=== PATIENT | female | born 1970 | race Caucasian/White ===

== ENCOUNTER → 2017-05-14 | Outpatient (CLI) | payer BC ==
[2017-05-14 17:07] VITALS: BP 122/71; PULSE 71; RESP 16; TEMP 98.1
--- NOTE | 2017-05-28 16:30 | P.PN ---
Progress Note - Text DATE OF SERVICE: 05/14/2017 REASON FOR CONSULTATION: Initial bariatric evaluation. HISTORY OF PRESENT ILLNESS: The patient is a 46-year-old female who presents with long-standing history of morbid obesity. She has history of a sleeve gastrectomy performed over 3+ years ago. She reports after her initial sleeve, she has lost follow-up. She now presents several years later with iron deficiency anemia including chronic fatigue. She reports losing her hair. She is not been taking her multivitamins. She's not been following her bariatric diet of protein intake over 75 g. She completed an upper endoscopy with features of a diaphragmatic hiatal hernia symptomatic. Now she presents for further evaluation and management. At her height of 5 foot 3.25, her ideal body weight is 140 pounds. Today she comes in at her heaviest of 207 pounds. She is 67 pounds overweight. PAST MEDICAL HISTORY: 1. Gastroesophageal reflux disease. 2. Depression. 3. Morbid obesity. 4. Iron deficiency anemia. PAST SURGICAL HISTORY: 1. Sleeve gastrectomy. 2. Upper endoscopy. HOME MEDICATIONS: 1. Iron. 2. Celexa. ALLERGIES: None. SOCIAL HISTORY: No active tobacco use. FAMILY HISTORY: Denies any DVTs, pulmonary embolisms in her family. Denies any ulcerative colitis disease or Crohn's. She does have a family history of morbid obesity. REVIEW OF ORGAN SYSTEMS: CONSTITUTIONAL: At her height of 5 foot 3.25, her ideal body weight is 140 pounds. Today she comes in at her heaviest of 207 pounds. She is 67 pounds overweight. HEENT: Denies any active troubles with vision or hearing. ENDOCRINE: No reports of diabetes or hypothyroidism. CARDIOVASCULAR: No reports of palpitations or heart attacks or chest pain. RESPIRATORY: No pneumonia. No recent asthma. GI: Denies any bright red blood per rectum, diarrhea or constipation. Reports severe gastroesophageal reflux disease. MUSCULOSKELETAL: Describes generalized muscle aches, including lower back pain or joint pain. NEURO: No reports of headaches or seizure disorders. PSYCH: Has depression without suicidal ideation. Has anxiety. HEMATOLOGIC: Denies any abnormal bleeding or bruising. PHYSICAL EXAM: VITAL SIGNS: height 5 foot 3.25 inches, weight 207 pounds. BMI 36.5. Vital Signs Temp 98.1 F 05/14/17 17:04 Pulse 71 05/14/17 17:04 Resp 16 05/14/17 17:04 BP 122/71 05/14/17 17:04 Pulse Ox GENERAL: Well-developed female in no acute distress. HEENT: No scleral icterus. Extraocular was grossly intact. No nasal drainage. NECK: Supple without lymphadenopathy. CHEST: Nonlabored respirations with equal bilateral excursions. CARDIOVASCULAR: Regular rate. Distal 2+ pulses. ABDOMEN: Obese, soft, nontender, nondistended. MUSCULOSKELETAL: No clubbing, cyanosis, or edema. Gross strength 5/5 distal lower extremities. NEURO: No focal or lateralizing signs. Cranial nerves 2 through 12 grossly within normal limits. PSYCH: Appropriate affect. Alert and oriented to person, place and time. LABS: Outside lab review was confirmed iron deficiency anemia including vitamin B12 deficiency. STUDIES: Upper endoscopy consistent with symptomatic diaphragmatic hiatal hernia over 2-3 cm with erosive esophagitis, LA grade C. ASSESSMENT: 1. Morbid obesity due to excess calories. 2. Body mass index of 36.5 3. History of sleeve gastrectomy. 4. Iron deficiency anemia. 5. Gastroesophageal reflux disease. 6. Diaphragmatic hiatal hernia. 7. Medical noncompliance to bariatric diet. 8. Vitamin B12 deficiency. PLAN: 1. She has obtained the bariatric metabolic panel at an outside facility with features consistent with iron deficiency anemia including vitamin B12 deficiency. 2. Recommend vitamin B12 intramuscular shot including oral supplementation. 3. Despite oral supplement with iron, she still is iron deficient. May benefit from iron infusion. 4. Recommend referral to bariatric dietitian regarding gastrectomy diet. 5. Recommend protein intake of at least 70 g daily. 6. Recommend intensive nutritional follow-up within the next 2-3 months for complete correction. 7. Recommend multivitamin, daily. Thank you for this consultation.
== END | disposition home or self-care (01) ==
LOC: BARWHC3 16:31
PROVIDERS: ATTEND Surgery Plastic and Reconstructive Surgery
DX: Z48.815 Encounter for surgical aftercare following surgery on the digestive system (principal); E66.01 Morbid (severe) obesity due to excess calories; Z68.36 Body mass index [BMI] 36.0-36.9, adult; D50.9 Iron deficiency anemia, unspecified; K21.9 Gastro-esophageal reflux disease without esophagitis; K44.9 Diaphragmatic hernia without obstruction or gangrene; E53.8 Deficiency of other specified B group vitamins; F32.9 Major depressive disorder, single episode, unspecified; Z79.899 Other long term (current) drug therapy; Z98.84 Bariatric surgery status
CPT/HCPCS: 99201

== ENCOUNTER → 2017-07-10 | Outpatient (CLI) | payer BC | END | disposition home or self-care (01) | LOC: RADECHMAIN 12:28 | PROVIDERS: ATTEND Family Medicine | DX: R00.0 Tachycardia, unspecified (principal) | CPT/HCPCS: 93225; 93226 ==

== ENCOUNTER → 2020-03-31 | Outpatient (CLI) | payer BC | END | disposition home or self-care (01) | LOC: LABWHC1 07:56 | PROVIDERS: ATTEND Obstetrics & Gynecology | DX: U07.1 COVID-19 (principal) | CPT/HCPCS: 87635 ==

== ENCOUNTER 2020-04-03 07:58 | Day surgery (SDC) | payer BC ==
--- NOTE | 2020-03-30 12:57 | HP ---
HISTORY AND PHYSICAL The patient is a 49-year-old 3, para 3-0-0-3, who presented to the office for her routine examination with complaints of significant menorrhagia with cycles lasting at least 6 days and are very heavy with clots and have led actually to anemia for which she is being treated through hematology. Her cycles remain fairly regular and roughly every 28-30 days. We discussed multiple different options for treatment and ultimately, after thorough discussion, she has opted to proceed with diagnostic hysteroscopy with NovaSure endometrial ablation. PAST MEDICAL HISTORY: Significant for anemia as noted above, and some depression. PAST SURGICAL HISTORY: Significant for gastric sleeve procedure in 2013 and secondarily wisdom teeth extraction. She has had no anesthetic concerns by her report. OBSTETRICAL HISTORY: 3, para 3-0-0-3 term vaginal deliveries without complications. Current method of contraception is vasectomy. GYNECOLOGIC HISTORY: Unremarkable aside from the menorrhagia as noted in the history of present illness, leading to anemia. There is no history of any infections to include STDs. FAMILY HISTORY: Noncontributory. SOCIAL HISTORY: The patient is and works as a teacher. She is a nonsmoker and reports occasional alcohol, but no other social concerns. CURRENT MEDICATIONS: Include Celexa 20 mg daily. Folic acid daily, Prilosec daily, vitamin B12 daily, and vitamin D daily. ALLERGIES: No known drug allergies. REVIEW OF SYSTEMS: Confined to history of present illness. PHYSICAL EXAMINATION: Vital signs are stable. The patient is afebrile. In general, this is a well- developed, well-nourished white female in no acute distress. Her heart has regular rhythm and rate without murmur. Her lungs are clear to auscultation bilaterally in all garner. Her abdomen is nondistended, has normoactive bowel sounds, soft, nontender, and without any palpable masses, hepatosplenomegaly, or hernias. Her extremities without any cyanosis, clubbing, or edema and are nontender to palpation. Pelvic examination demonstrates normal external genitalia and BUS with normal vaginal mucosa and cervix to inspection and palpation. There is no cervical motion tenderness. The uterus is approximately 5-6 weeks' in size, retroverted, mobile, nontender, normal in shape. The adnexa are normal and nontender without mass bilaterally. Endometrial biopsy was performed and ultimately demonstrated to be benign. ASSESSMENT AND PLAN: Menorrhagia with anemia: The options for treatment were discussed at length and the patient has opted to proceed with diagnostic hysteroscopy with NovaSure endometrial ablation. The risks and complications of the procedure have been thoroughly discussed including the risks for bleeding, bleeding requiring transfusion, infection, and injury to local structures to specifically include uterine perforation as well as subsequent Asherman syndrome and possible hematometra. She has understood all these concerns and has agreed to proceed. We are scheduled for the procedure as outlined above on the morning of April 03, 2020. MMODL / IJN: [id number] /
[2020-03-30 14:47] VITALS: BMI 34.3
[~2020-04-03 07:58] MED LIST: DEXAMETHASONE SOD PHOSPHATE 10 MG/ML 1 ML VIAL IV ONE; HYDROmorphone 0.5 MG/0.5 ML SYRINGE IVP PRN; LACTATED RINGERS 1,000 ML IV SCH; LIDOCAINE 1% (10MG/ML) FOR IV START INTRADERMA PRN; ONDANSETRON 4 MG/2 ML VIAL IVP ONE; Pre Op ABX Message 1 EACH MISC MISCELLANE ONE
[2020-04-03] MEDS ORDERED: ONDANSETRON 4 MG/2 ML VIAL IVP ONE (08:22)
[2020-04-03] MEDS ORDERED: DEXAMETHASONE SOD PHOSPHATE 10 MG/ML 1 ML VIAL IV ONE (08:23)
[2020-04-03] MEDS ORDERED: SCOPOLAMINE 1.5MG/72HR PATCH TRANSDERM ONE (08:23)
[2020-04-03] MEDS ORDERED: fentaNYL (PF) 50 MCG/ML 2 ML AMP ONE (09:14)
[2020-04-03] MEDS ORDERED: KETOROLAC 30 MG/ML 1 ML VIAL ONE (09:14)
[2020-04-03] MEDS ORDERED: SUCCINYLCHOLINE CHLORIDE 100 MG/5 ML SYR IV ONE (09:14)
[2020-04-03] MEDS ORDERED: PROPOFOL 10 MG/ML 20 ML VIAL IV ONE (09:14)
[2020-04-03] MEDS ORDERED: LIDOCAINE 1% INJ 10MG/ML (20 ML MDV) ONE (09:14)
[2020-04-03] MEDS ORDERED: MIDAZOLAM 2 MG/2 ML VIAL ONE (09:14)
[2020-04-03] MEDS ORDERED: SIMETHICONE 80 MG CHEWABLE PO PRN (09:47)
[2020-04-03] MEDS ORDERED: KETOROLAC 30 MG/ML 1 ML VIAL IVP PRN (09:47)
[2020-04-03] MEDS ORDERED: Acetaminophen-Codeine 300-30mg TAB PO PRN ×2 (09:47)
[2020-04-03] MEDS ORDERED: diphenhydrAMINE 50 MG/ML 1 ML VIAL IVP PRN (09:47)
[2020-04-03] MEDS ORDERED: ONDANSETRON 4 MG/2 ML VIAL IVP PRN (09:47)
[2020-04-03] MEDS ORDERED: IBUPROFEN 600 MG TAB PO PRN (09:47)
[2020-04-03] MEDS ORDERED: METOCLOPRAMIDE 5 MG/ML 2 ML VIAL IVP PRN (09:47)
--- NOTE | 2020-04-03 09:57 | P.OP ---
Date of Procedure: 04/03/20 Preoperative Diagnosis: #1. Menorrhagia #2. Anemia Postoperative Diagnosis: Same Procedure(s) Performed: #1. Diagnostic hysteroscopy #2. NovaSure endometrial ablation Anesthesia: JOSIAH Surgeon: Alejo Haas Estimated Blood Loss (ml): 5 IV fluids (ml): 400 Urine output (ml): 50 Pathology: none sent Condition: stable Disposition: PACU Operative Findings: Preoperative pelvic examination demonstrated a 5-6 week retroverted mobile normal shaped uterus with normal adnexa bilaterally. Intraoperatively, the cervix sounded to approximate 4 cm while uterus sounded to 10 cm in total. Using hysteroscope, the bilateral tubal ostia were seen. There was no obvious pathology present though visualization was somewhat difficult secondary to blood floating in the saline. The settings for the NovaSure tool where a length of 6.0, a width of 4.7, for a total of 155 W. The total run time was 117 seconds after which time the base unit read "procedure complete." The postprocedural result appeared to be excellent through the hysteroscope. Description of Procedure: The patient was prepped and draped in usual fashion after general endotracheal anesthesia was administered by the anesthesiologist. A weighted speculum was placed and the anterior lip of the cervix grasped with single-tooth tenaculum. The bladder was drained of approximately 50 mL of clear rodolfo urine. The cervix and uterus were sounded to 4 and 10 cm respectively. Serial dilation was carried out to admit the diagnostic hysteroscope which was placed to the fundus with the findings as noted above. There was no apparent pathology and the bilateral tubal ostia were seen. The scope was set aside in favor of the NovaSure tool which was placed into the uterus, opened, and seated well. The settings for the tool were as noted above with a length of 6.0 cm, a width of 4.7 cm for a total power 155 W. The cavity test was passed without difficulty. The tool was enabled and the run was started. After total run time of 117 seconds, the tool disengaged and the base unit read "procedure complete." The instrument was closed, removed, and discarded. The diagnostic scope was placed and the uterine cavity and the findings appeared to be excellent as noted above. All instrumentation was then removed. There was no ongoing bleeding either from the cervix or from the tenaculum site. Estimated blood loss for the entire case was 5 mL or less. There were no complications. All sponge, instrument, and needle counts were correct. The patient tolerated the procedure well and proceeded to the recovery room in stable condition.
[2020-04-03] MEDS ORDERED: LACTATED RINGERS 1,000 ML IV SCH (10:00)
[2020-04-03 10:07] VITALS: TEMP 96
[2020-04-03 10:18] VITALS: RESP 18
[2020-04-03] MEDS ORDERED: LACTATED RINGERS 1,000 ML IV ONE (10:26)
[2020-04-03 11:04] VITALS: BP 116/78; PULSE 68
== END 2020-04-03 11:25 | disposition home or self-care (01) ==
LOC: OR 07:58
PROVIDERS: ATTEND Obstetrics & Gynecology
DX: N92.0 Excessive and frequent menstruation with regular cycle (principal); D64.9 Anemia, unspecified; K21.9 Gastro-esophageal reflux disease without esophagitis; F32.9 Major depressive disorder, single episode, unspecified; Z98.84 Bariatric surgery status; Z79.899 Other long term (current) drug therapy
CPT/HCPCS: 81025; 58563; J2250; J1100; J2405; J2001; J3010; J1885; J0330; J2704

== ENCOUNTER → 2021-02-28 | Outpatient (CLI) | payer BC ==
--- NOTE | 2021-02-28 20:59 | CONS ---
CONSULTATION DATE OF SERVICE: 02/28/2021 This 50-year-old lady has been evaluated in the sleep center for possible obstructive sleep apnea-hypopnea syndrome. HISTORY OF PRESENT ILLNESS/SLEEP-WAKE EVALUATION: Patient's usual sleep schedule is from 9 p.m. to 5:30 a.m. on working days and to 6:30 a.m. on weekends. No problems with falling asleep, although she reads in the bedroom. During sleep she is in different positions on the back and side. She snores and wakes up from sleep 2 times with one episode of nocturia. Recently she developed an episode of chest pain during sleep and was evaluated in the emergency room with a negative cardiac workup. She wakes up with panic attacks, episodes of palpitation and grinding teeth. During the day she has problems with memory, episodes of anxiety. [place] Sleepiness Scale is 6. Patient's weight increased over the last 5 years by about 15 pounds. PAST MEDICAL HISTORY: Positive for depression, headaches, acid reflux, iron deficiency anemia. PAST SURGICAL HISTORY: Gastric sleeve, uterus ablation. MEDICATIONS: Prilosec, Celexa, Flonase, loratadine. SOCIAL HISTORY: Negative for smoking. Alcohol consumption: Occasional. FAMILY HISTORY: Stroke, heart problems, sleep apnea. REVIEW OF SYSTEMS: Awakenings from sleep, episodes of sleepiness during the day, snoring, episodes of chest pain. PHYSICAL EXAMINATION: GENERAL: A pleasant lady without distress. VITAL SIGNS: BP 129/90, HR 93, RR 14, height 5 feet 5 inches, weight 203.8, BMI 33.9, temperature 98.8, oxygen saturation at room air 95%. HEENT: PERRLA, EOMI. Evaluation of oropharynx showed tongue protrudes midline. Low position of soft palate. Mallampati III. NECK: Supple. No JVD. Thyroid is not palpable. Neck measures 14-1/2 inches in circumference. LUNGS: Clear to percussion and to auscultation. Good air exchange. No wheezing or rhonchi. HEART: S1, S2 regular. No murmurs, gallops or rubs. ABDOMEN: Obese. EXTREMITIES: No clubbing or cyanosis. LOOM TUNER: Awake, alert, and oriented X3. Cranial nerves 2 to 7 intact. There is no fasciculation or atrophy. noted. No focal deficits observed. IMPRESSION: 1. Snoring, awakenings from sleep with nocturia, low position of soft palate, episode of chest pain developed during sleep; possible obstructive sleep apnea-hypopnea syndrome. 2. Obesity. BMI 33.9. 3. History of depression. 4. Acid reflux. 5. History of sinus problems. 6. Headaches. 7. History of iron deficiency anemia. 8. Status post uterine ablation. 9. Status post gastric sleeve. PLAN: 1. Home sleep apnea test to check patient's breathing during sleep. 2. CPAP/BiPAP titration if sleep study confirms obstructive sleep apnea-hypopnea syndrome. 3. Preferable position during sleep on the side. 4. No driving if patient feels any sleepiness. 5. I will see patient for follow up visit to explain results of testing and following plan. Thank you very much for referring this patient for consultation. Sincerely, Reagan Lobo MD, PhD, FAASM Diplomat of [employer] Mainframe Developer of [facility] [place] MMODL / REGGIEN: [id number] /
== END | disposition home or self-care (01) ==
CPT/HCPCS: 99211

== ENCOUNTER → 2021-07-05 | Outpatient (CLI) | payer BC ==
--- NOTE | 2021-07-06 11:47 | SFUN ---
SLEEP CENTER FOLLOW UP NOTE DATE OF SERVICE: 07/05/2021 This 50-year-old lady has been followed in Sleep Center for treatment of obstructive sleep apnea-hypopnea syndrome. Recently the patient had a home sleep apnea test which showed that the patient has sleep apnea, and after that she was started on treatment with CPAP. Today is her first visit on CPAP therapy. The patient feels better while using her CPAP. She sleeps better and feels better during the day. I discussed with her results of the sleep study in detail. Her [place] Sleepiness Scale today is 4, which is totally normal. I checked her CPAP unit. Range of the pressure is 5-15, average pressure 9.4 cm of water. Usage is 30/30 nights and 29/30 nights for more than 4 hours, average 6.9 hours per night. Leak is 10 L/minute, which is in normal range. Apnea-hypopnea index is only 0.4, which is totally normal. MEDICATIONS: 1. Prilosec. 2. Celexa. 3. Loratadine. PHYSICAL EXAMINATION: GENERAL: A pleasant patient without any distress. VITAL SIGNS: BP 119/82, HR 74, RR 15, weight 207, temperature 98.2, oxygen saturation at room air 95%. HEENT: PERRLA, EOMI, evaluation of oropharynx showed tongue protrudes midline. Low position of soft palate. Mallampati 3. NECK: Supple, no JVD. Thyroid is not palpable. LUNGS: Clear to percussion and to auscultation. Good air exchange. No wheezing or rhonchi. HEART: S1, S2 regular. No murmurs, gallops, or rubs. ABDOMEN: Slightly obese. EXTREMITIES: No clubbing or cyanosis. SIDE HEMMER: Awake, alert, and oriented X3. Cranial nerves 2 to 7 intact. There is no fasciculation or atrophy. noted. No focal deficits observed. IMPRESSION: 1. Obstructive sleep apnea-hypopnea syndrome. Patient demonstrated 100% compliance with treatment, benefitting from treatment. 2. Mild obesity. 3. History of depression. 4. Acid reflux. 5. History of sinus problems. 6. Headaches. 7. History of iron deficiency anemia. 8. Status post uterine ablation. 9. Status post gastric sleeve. PLAN: 1. Patient will continue to use PAP equipment every night for the whole night. 2. Sleep hygiene with regular time in bed for at least 7-1/2 to 8 hours. 3. Precautions related to driving. No driving if feeling sleepiness. 4. I will maintain all necessary prescription for PAP supplies including mask, tube, filters. 5. Watching weight. 6. Follow-up visit in one year or earlier if patient has any problems. Thank you very much for allowing me to participate in the management of your patient. Sincerely, Reagan Lobo MD, PhD, FAASM Diplomat of [employer] [employer] Sleep Medicine Board of [employer] [employer] Director Of Supply Chain of [facility] [place] MMODL / IJN: [id number] /
== END | disposition home or self-care (01) ==
LOC: SLEEP 15:52
PROVIDERS: ATTEND Internal Medicine
DX: Z53.9 Procedure and treatment not carried out, unspecified reason (principal)

== ENCOUNTER → 2023-06-11 | Outpatient (CLI) | payer BC ==
--- NOTE | 2023-06-12 08:25 | MM ---
Reason for Exam: Screening (asymptomatic). Last mammogram was performed 2 year(s) and 6 month(s) ago. Patient History: Menarche at age 12. First Full-Term at age 26. Risk Values: Patt 5 year model risk: 1.2%. NCI Lifetime model risk: 10.6%. Prior Study Comparison: 12/31/2012 Bilateral Screening Mammogram, [facility]. 04/15/2018 Bilateral MG screening mammo w CAD - 2, Unknown. 12/11/2020 Bilateral MG screening mammo w CAD - 2, Unknown. Tissue Density: There are scattered fibroglandular densities. Findings: Analyzed By CAD. No suspicious group of microcalcifications within either breast. No suspicious mass within the left breast. There is an ovoid circumscribed 5 mm mass within the lower outer right breast at anterior depth. Overall Assessment: Incomplete: need additional imaging evaluation, BI-RAD 0 Management: Diagnostic Breast Ultrasound of the right breast. A clinical breast exam by your physician is recommended on an annual basis and results should be correlated with mammographic findings. [facility] will attempt to contact patient to return for supplemental views and ultrasound if indicated. Note on Patt scores and lifetime risk: 1. A Patt score greater than 3% is considered moderate risk. If this is the case, consider specialist referral to assess eligibility for a risk reducing agent. If overall lifetime risk for the development of breast cancer is 20% or higher, the patient may qualify for future screening with alternating mammogram and breast MRI. Electronically signed and approved by: Stone Snyder D.O.
== END | disposition home or self-care (01) ==
LOC: RADMAMWWP 16:25
PROVIDERS: ATTEND Obstetrics & Gynecology
DX: Z12.31 Encounter for screening mammogram for malignant neoplasm of breast (principal)
CPT/HCPCS: 77063; 77067

== ENCOUNTER → 2023-11-12 | Outpatient (CLI) | payer BC ==
--- NOTE | 2023-11-13 16:42 | MR ---
EXAMINATION TYPE: MR angio head wo con DATE OF EXAM: 11/12/2023 8:03 PM CLINICAL INDICATION:Female, 53 years old with history of R51.9 Headache; PHH, Headaches. COMPARISON: MR brain same day. Technical: 3-D [id number] Axial with MIP reconstruction created on a separate workstation.. IV Contrast: None cc Findings: Vertebral arteries: The vertebral arteries are patent. Vertebral arteries are: Codominant. Basilar artery: The basilar artery is intact. The basilar artery bifurcation is normal. Internal Carotid arteries: The cervical, petrous, cavernous and supraclinoid segments are normal. ROSALIO: Patent with no evidence of aneurysm. ACOM: Present without evidence of aneurysm. MCA: Patent with no evidence of aneurysm. DROP WIRE ALINER: Patent with no evidence of aneurysm. PCOM: Hypoplastic bilaterally. IMPRESSION: No evidence of aneurysm or significant stenosis.
--- NOTE | 2023-11-13 16:43 | MR ---
EXAMINATION TYPE: MR brain wo/w con DATE OF EXAM: 11/12/2023 8:26 PM CLINICAL INDICATION:Female, 53 years old with history of R51.9 Headache, Headaches. COMPARISON: Same day MRI TECHNIQUE: Multi planar, multi sequence imaging was performed through the brain including: T1, T2, In version recovery, susceptibility weighted imaging and gradient echo imaging and Diffusion weighted im aging. The patient was then given intravenous contrast and multi planar, T1 fat-saturation images wer e obtained. IV Contrast: 9.5 cc Gadavist FINDINGS: The vance-white junctions, ventricular system, basal cisterns appear unremarkable. Diffusion-weighted imaging shows no evidence of restricted diffusion to suggest acute/subacute infarct. Intracranial ar terial flow voids are maintained. Midline structures show no abnormality. Scattered foci of high T2 s ignal intensity are seen within the periventricular white matter. The susceptibility weighted images do not reveal any evidence for micro-hemorrhage. After administration of gadolinium, no abnormal enha ncement is seen. The bone marrow signal is within normal limits. Paranasal sinuses and mastoid air cells: Moderate mucosal thickening of the maxillary sinuses. Visual ized orbits: Orbital contents are intact. IMPRESSION: 1. No evidence of intracranial mass, acute/subacute infarct, or abnormal enhancement. 2. Nonspecific white matter changes, likely related to small vessel ischemic disease versus sequela o f headaches. 3. Moderate paranasal sinus disease of the neck/sinuses.
== END | disposition home or self-care (01) ==
LOC: RADMRIMAIN 19:22
PROVIDERS: ATTEND Family Medicine
DX: R51.9 Headache, unspecified (principal); R90.82 White matter disease, unspecified; J34.89 Other specified disorders of nose and nasal sinuses
CPT/HCPCS: 70544; 70553; A9585

== ENCOUNTER → 2024-02-16 | Outpatient (CLI) | payer BC ==
--- NOTE | 2024-02-16 09:37 | USB ---
Reason for Exam: Follow-up at short interval from prior study. Patient History: Menarche at age 12. First Full-Term at age 26. Risk Values: Patt 5 year model risk: 1.3%. NCI Lifetime model risk: 10.5%. Technique: Method: Targeted. Prior Study Comparison: 04/15/2018 Bilateral MG screening mammo w CAD - 2, Unknown. 12/11/2020 Bilateral MG screening mammo w CAD - 2, Unknown. 06/11/2023 Bilateral MG 3D screening mammo w/cad, [facility]. Findings: The lower section of the breast of the right breast, the axilla of the right breast and the retroareolar of the right breast were scanned. No solid or cystic masses are identified. No discrete abnormality at 6:00 position is identified to correlate with the prior findings. Overall Assessment: Negative, BI-RAD 1 Management: Screening Mammogram of both breasts in 6 months. A clinical breast exam by your physician is recommended on an annual basis and results should be correlated with mammographic findings. This exam should not preclude additional follow-up of suspicious palpable abnormalities. Results were given to the patient verbally at the time of exam. Electronically signed and approved by: Gerard Teixeira D.O. Radiologis
== END | disposition home or self-care (01) ==
LOC: RADUSWWP 08:23
PROVIDERS: ATTEND Family Medicine
DX: R92.8 Other abnormal and inconclusive findings on diagnostic imaging of breast (principal)

== ENCOUNTER 2024-03-14 23:42 | Observation (INO) | payer BC ==
[2024-03-15 00:11] LABS: INR 0.9 (<1.2); Partial Thromboplastin Time 23.9 sec (22.0-30.0)
[2024-03-15 00:14] LABS: Basophils # (A) 0.1 k/uL (0-0.2); Basophils % (A) 1 %; Eosinophils % (A) 0 %; HCT 41.5 % (34.0-46.0); HGB 13.7 gm/dL (11.4-16.0); Lymphocytes # (A) 2.6 k/uL (1.0-4.8); Lymphocytes % (A) 34 %; MCH 28.7 pg (25.0-35.0); MCHC 32.9 g/dL (31.0-37.0); MCV 87.1 fL (80.0-100.0); Mean Platelet Volume 7.1; Monocytes # (A) 0.4 k/uL (0-1.0); Monocytes % (A) 5 %; Neutrophils # (A) 4.3 k/uL (1.3-7.7); Neutrophils % (A) 58 %; Platelet Count 253 k/uL (150-450); RBC 4.77 m/uL (3.80-5.40); RDW 12.4 % (11.5-15.5); WBC 7.5 k/uL (3.8-10.6)
[2024-03-15 00:20] LABS: ALT 45 U/L (4-34); AST 25 U/L (14-36); African American GFR (CKD) >90 (>60 ml/min/1.73 sqM); Alkaline Phosphatase 105 U/L (38-126); Anion Gap 4 mmol/L; Blood Urea Nitrogen 17 mg/dL (7-17); Calcium 9.3 mg/dL (8.4-10.2); Carbon Dioxide 30 mmol/L (22-30); Chloride 106 mmol/L (98-107); Glucose 110 mg/dL (74-99); Magnesium 2.2 mg/dL (1.6-2.3); Non-African American GFR(CKD) >90 (>60 ml/min/1.73 sqM); Potassium 4.5 mmol/L (3.5-5.1); Sodium 140 mmol/L (137-145); Total Bilirubin 0.3 mg/dL (0.2-1.3); Total Protein 6.9 g/dL (6.3-8.2)
[2024-03-15] MEDS: NITROGLYCERIN SL TABS 0.4 MG TAB SUBLINGUAL STA ×2 (00:22→00:42)
[2024-03-15] MEDS: ASPIRIN 81 MG PO STA (00:23)
--- NOTE | 2024-03-15 00:24 | ED ---
General Adult HPI - General Chief complaint: Chest Pain Stated complaint: Chest Pressure, Back pain, Dizziness Time Seen by Provider: 03/15/24 00:03 Source: patient, RN notes reviewed, old records reviewed Mode of arrival: ambulatory Limitations: no limitations - History of Present Illness Initial comments: Is a 53-year-old female who presents emergency department complaining of chest pain. States she has substernal chest pain that has occurred twice today. No known palliative or provocative factors. Denies any cardiac history. Has a history of GERD. Describes the pain as a pressure-like sensation over her sternum. States she also has noticed some back soreness in her lower mid back however is uncertain if it is related to her current complaints or not. Denies any shortness of breath. Denies any radiation of the pain to her arms or shoulders. Denies any nausea or diaphoresis with the pain. Presents for further evaluation at this time. States she does feel lightheaded when the pain is severe. States it is currently 1 or 2 out of 10. Was worse earlier at approximately an 8 out of 10. Started again at approximately 10:30 PM last night. - Related Data Home Medications Medication Instructions Recorded Confirmed Citalopram Hydrobromide [CeleXA] 30 mg PO DAILY 05/14/17 04/03/20 Omeprazole [PriLOSEC] 20 mg PO AC-BRKFST 05/14/17 04/03/20 Isibloom 1 tab PO DAILY 03/30/20 04/03/20 Allergies Allergy/AdvReac Type Severity Reaction Status Date / Time No Known Allergies Allergy Verified 03/14/24 23:46 Review of Systems ROS Statement: Those systems with pertinent positive or pertinent negative responses have been documented in the HPI. Review of Systems: CONST: Denies fever EYES: Denies blurry vision ENT: Denies nasal congestion C/V: Endorses chest discomfort RESP: Denies shortness of breath GI: Denies abdominal pain : Denies dysuria SKIN: Denies rash. MSK: Denies joint pain. NEURO: Denies headache ROS Other: All systems not noted in ROS Statement are negative. Past Medical History Past Medical History: GERD/Reflux Additional Past Medical History / Comment(s): Low iron, anemia History of Any Multi-Drug Resistant Organisms: None Reported Past Surgical History: Bariatric Surgery Past Anesthesia/Blood Transfusion Reactions: No Reported Reaction Past Psychological History: Depression Smoking Status: Never smoker Past Alcohol Use History: Rare Past Drug Use History: None Reported General Exam - General Exam Comments Initial Comments: General: Appears in no acute distress. HEAD: Normal with no signs of head trauma. EYES: PERRLA, EOMI, conjunctiva normal, no discharge. ENT: Hearing grossly intact, normal oropharynx. RESPIRATORY: Clear breath sounds bilaterally. No wheezes, rales, or rhonchi. C/V: Regular rate and rhythm. S1 and S2 auscultated, no edema, peripheral pulses 2+ and intact throughout. Chest pain not reproducible on palpation. ABD: Abd is soft, nontender, nondistended EXT: Normal range of motion, no obvious deformity SKIN: No rashes or lesions observed on exposed skin. NEURO: Alert and oriented x 4. Limitations: no limitations Course Vital Signs 03/14/24 23:44 Temperature 97.7 F Pulse Rate 67 Respiratory 18 Rate Blood Pressure 128/73 O2 Sat by Pulse 97 Oximetry Medical Decision Making - Medical Decision Making Was pt. sent in by a medical professional or institution (, PA, SAFETY ADMIN ASSISTANT, urgent care, hospital, or halfway...) When possible be specific @ -No Did you speak to anyone other than the patient for history (EMS, parent, family, police, friend...)? What history was obtained from this source @ -No Did you review nursing and triage notes (agree or disagree)? Why? @ -I reviewed and agree with nursing and triage notes Were old charts reviewed (outside hosp., previous admission, EMS record, old E KG, old radiological studies, urgent care reports/EKG's, halfway records)? Report findings @ -Old charts reviewed Differential Diagnosis (chest pain, altered mental status, abdominal pain women, abdominal pain men, vaginal bleeding, weakness, fever, dyspnea, syncope, headache, dizziness, GI bleed, back pain, seizure, CVA, palpatations, mental health, musculoskeletal)? @ -Differential Chest Pain: Stable Angina, Unstable Angina, STEMI, NSTEMI Aortic Dissection, Pneumothorax, Musculoskeletal, Esophageal Spasm GERD, Cholecystitis, Pancreatitis, Zoster, this is not meant to be an all-inclusive list. EKG interpreted by me (3pts min.). @ -As above X-rays interpreted by me (1pt min.). @ -Chest x-ray reveals no obvious acute cardiopulmonary process. CT interpreted by me (1pt min.). @ -None done U/S interpreted by me (1pt. min.). @ -None done What testing was considered but not performed or refused? (CT, X-rays, U/S, labs)? Why? @ -None What meds were considered but not given or refused? Why? @ -None Did you discuss the management of the patient with other professionals (mahad sahni i.e. , PA, SAFETY ADMIN ASSISTANT, lab, RT, psych nurse, oncology social work, underwear hemmer, teacher, police officer booking, gearcase assembler)? Give summary @ -No Was smoking cessation discussed for >3mins.? @ -No Was critical care preformed (if so, how long)? @ -No Were there social determinants of health that impacted care today? How? (Homelessness, low income, unemployed, alcoholism, drug addiction, transportation, low edu. Level, literacy, decrease access to med. care, long term, rehab)? @ -No Was there de-escalation of care discussed even if they declined (Discuss DNR or withdrawal of care, Hospice)? DNR status @ -No What co-morbidities impacted this encounter? (DM, HTN, Smoking, COPD, CAD, Cancer, CVA, ARF, Chemo, Hep., AIDS, mental health diagnosis, sleep apnea, morbid obesity)? @ -None Was patient admitted / discharged? Hospital course, mention meds given and route, prescriptions, significant lab abnormalities, going to OR and other pertinent info. @ -Based on the patient's presentation and physical exam, we will obtain cardiopulmonary workup. Concern for cardiac etiology for current symptoms. Vital signs are currently within acceptable limits. She will be given 324 mg of aspirin as well as nitro tablets. She was in agreement this plan. EKG shows no signs of acute ischemia. Chest x-ray unremarkable.Laboratory studies unremarkable including undetectable troponin, normal D-dimer. Remainder the labs unremarkable. Following multiple nitroglycerin tablets, chest pain unchanged. Patient's heart score is moderate at 4. I did recommend admission at this time for repeat troponins and cardiology evaluation. Patient was in agreement this plan. At this time, patient was dosed a small dose of Ativan, as well as Toradol and GI cocktail. Patient's symptoms resolved and she is asymptomatic. At this time though we will continue with plan for admission for chest pain. We will trend the troponin. Cardiology consulted. Echo ordered. I spoke with the admitting team, RENA Foote who is covering for Dr. Pond. Patient was accepted. Undiagnosed new problem with uncertain prognosis? @ -No Drug Therapy requiring intensive monitoring for toxicity (Heparin, Nitro, Insulin, Cardizem)? @ -No Were any procedures done? @ -No Diagnosis/symptom? @ -Chest pain Acute, or Chronic, or Acute on Chronic? @ -Acute Uncomplicated (without systemic symptoms) or Complicated (systemic symptoms)? @ -Complicated Side effects of treatment? @ -None Exacerbation, Progression, or Severe Exacerbation] @ -No Poses a threat to life or bodily function? @ -Possibly, yes - Lab Data Result diagrams: 03/14/24 23:48 03/14/24 23:48 Lab Results 03/14/24 03/14/24 03/14/24 Range/Units 23:48 23:48 23:48 WBC 7.5 (3.8-10.6) k/uL RBC 4.77 (3.80-5.40) m/uL Hgb 13.7 (11.4-16.0) gm/dL Hct 41.5 (34.0-46.0) % MCV 87.1 (80.0-100.0) fL MCH 28.7 (25.0-35.0) pg MCHC 32.9 (31.0-37.0) g/dL RDW 12.4 (11.5-15.5) % Plt Count 253 (150-450) k/uL MPV 7.1 Neutrophils % 58 % Lymphocytes % 34 % Monocytes % 5 % Eosinophils % 0 % Basophils % 1 % Neutrophils # 4.3 (1.3-7.7) k/uL Lymphocytes # 2.6 (1.0-4.8) k/uL Monocytes # 0.4 (0-1.0) k/uL Eosinophils # 0.0 (0-0.7) k/uL Basophils # 0.1 (0-0.2) k/uL PT 10.0 (10.0-12.5) sec INR 0.9 (<1.2) APTT 23.9 (22.0-30.0) sec D-Dimer (<0.60) mg/L FEU Sodium 140 (137-145) mmol/L Potassium 4.5 (3.5-5.1) mmol/L Chloride 106 (98-107) mmol/L Carbon Dioxide 30 (22-30) mmol/L Anion Gap 4 mmol/L BUN 17 (7-17) mg/dL Creatinine 0.75 (0.52-1.04) mg/dL Est GFR (CKD-EPI)AfAm >90 (>60 ml/min/1.73 sqM) Est GFR (CKD-EPI)NonAf >90 (>60 ml/min/1.73 sqM) Glucose 110 H (74-99) mg/dL Calcium 9.3 (8.4-10.2) mg/dL Magnesium 2.2 (1.6-2.3) mg/dL Total Bilirubin 0.3 (0.2-1.3) mg/dL AST 25 (14-36) U/L ALT 45 H (4-34) U/L Alkaline Phosphatase 105 (38-126) U/L Troponin I (0.000-0.034) ng/mL Total Protein 6.9 (6.3-8.2) g/dL Albumin 4.0 (3.5-5.0) g/dL 03/14/24 03/15/24 Range/Units 23:48 00:00 WBC (3.8-10.6) k/uL RBC (3.80-5.40) m/uL Hgb (11.4-16.0) gm/dL Hct (34.0-46.0) % MCV (80.0-100.0) fL MCH (25.0-35.0) pg MCHC (31.0-37.0) g/dL RDW (11.5-15.5) % Plt Count (150-450) k/uL MPV Neutrophils % % Lymphocytes % % Monocytes % % Eosinophils % % Basophils % % Neutrophils # (1.3-7.7) k/uL Lymphocytes # (1.0-4.8) k/uL Monocytes # (0-1.0) k/uL Eosinophils # (0-0.7) k/uL Basophils # (0-0.2) k/uL PT (10.0-12.5) sec INR (<1.2) APTT (22.0-30.0) sec D-Dimer 0.25 (<0.60) mg/L FEU Sodium (137-145) mmol/L Potassium (3.5-5.1) mmol/L Chloride (98-107) mmol/L Carbon Dioxide (22-30) mmol/L Anion Gap mmol/L BUN (7-17) mg/dL Creatinine (0.52-1.04) mg/dL Est GFR (CKD-EPI)AfAm (>60 ml/min/1.73 sqM) Est GFR (CKD-EPI)NonAf (>60 ml/min/1.73 sqM) Glucose (74-99) mg/dL Calcium (8.4-10.2) mg/dL Magnesium (1.6-2.3) mg/dL Total Bilirubin (0.2-1.3) mg/dL AST (14-36) U/L ALT (4-34) U/L Alkaline Phosphatase (38-126) U/L Troponin I <0.012 (0.000-0.034) ng/mL Total Protein (6.3-8.2) g/dL Albumin (3.5-5.0) g/dL - EKG Data -: EKG Interpreted by Me EKG Comments: 12-lead Electrocardiogram Interpretation Note EKG was reviewed and interpreted by myself. 12-lead ECG performed at 2351 is interpreted by me as revealing normal sinus rhythm at a rate of 64 beats per minute. [place] is normal. LA interval is 146 ms, QRS duration is 86 ms, QTc is 391 ms.. There were no ST or T wave abnormalities to suggest myocardial ischemia or injury. R wave progression across the precordium was satisfactory. By my interpretation this EKG is non-diagnostic for acute ischemia. Disposition Clinical Impression: Chest pain Disposition: ADMITTED IP TO THIS HOSP Condition: Stable Time of Disposition: 01:44
--- NOTE | 2024-03-15 00:59 | XR ---
EXAM: XR Chest, 2 Views CLINICAL HISTORY: ITS.REASON XR Reason: Chest Pain TECHNIQUE: Frontal and lateral views of the chest. COMPARISON: No relevant prior studies available. FINDINGS: Lungs: Unremarkable. No consolidation. Pleural space: Unremarkable. No pneumothorax. Heart: Unremarkable. No cardiomegaly. Mediastinum: Unremarkable. Normal mediastinal contour. Bones/joints: Unremarkable. No acute fracture. IMPRESSION: Normal chest x-rays.
[2024-03-15] MEDS: LORazepam 1 MG TAB PO STA (01:12)
[2024-03-15] MEDS: MAG HYDROX/AL HYDROX/SIMETH 30 ML, HYOSCYAMINE ELIXIR 10 ML PO STA (01:12)
[2024-03-15] MEDS: PANTOPRAZOLE 40 MG/10 ML VIAL IVP STA (01:13)
[2024-03-15] MEDS: KETOROLAC 15 MG/ML 1 ML VIAL IVP STA (01:13)
[2024-03-15] MEDS ORDERED: NALOXONE 0.4 MG/ML 1 ML VIAL IV PRN (01:44)
[2024-03-15] MEDS: HEPARIN SODIUM,PORCINE 5,000 UNIT/ML 1 ML VIAL SQ SCH (09:00)
[2024-03-15 09:07] VITALS: RESP 16
[2024-03-15] MEDS: ENOXAPARIN 40 MG/0.4 ML SYRINGE SQ SCH (10:21)
--- NOTE | 2024-03-15 10:23 | CA ---
Transthoracic Echo Report Name: Kortney Barahona Age: 53 Gender: F : 1970 Exam Date: 03/15/2024 08:41 Exam Location: [facility] Ht (in): 63 Wt (lb): 210 Ordering Physician: Fady Medina MD Attending/Referring Phys: Inventory Taker Callie Gracia RDCS Procedure CPT: Indications: Chest Pain Cardiac Hx: Technical Quality: Contrast 1: Total Dose (mL): Contrast 2: Total Dose (mL): MEASUREMENTS (Male / Female) Normal Values 2D ECHO LV Diastolic Diameter PLAX 4.6 cm 4.2 - 5.9 / 3.9 - 5.3 cm LV Systolic Diameter PLAX 3.1 cm IVS Diastolic Thickness 1.0 cm 0.6 - 1.0 / 0.6 - 0.9 cm LVPW Diastolic Thickness 1.1 cm 0.6 - 1.0 / 0.6 - 0.9 cm LV Relative Wall Thickness 0.5 RV Internal Dim ED PLAX 1.9 cm LA Systolic Diameter LX 4.1 cm 3.0 - 4.0 / 2.7 - 3.8 cm LV Diastolic Volume MOD BP 56.0 cm??? 67 - 155 / 56 - 104 cm??? LV Systolic Volume MOD BP 23.9 cm??? 22 - 58 / 19 - 49 cm??? LV Ejection Fraction MOD BP 57.4 % >= 55 % LV Cardiac Index MOD BP 1024.8 cm???/min???m??? LV Diastolic Volume MOD 4C 63.2 cm??? LV Systolic Volume MOD 4C 17.5 cm??? LV Ejection Fraction MOD 4C 72.4 % LV Cardiac Index MOD 4C 1457.2 cm???/min???m??? LV Diastolic Length 4C 7.4 cm LV Systolic Length 4C 5.5 cm LV Diastolic Volume MOD 2C 43.4 cm??? LV Systolic Volume MOD 2C 29.8 cm??? LV Ejection Fraction MOD 2C 31.3 % LV Cardiac Index MOD 2C 432.1 cm???/min???m??? LV Diastolic Length 2C 6.4 cm LV Systolic Length 2C 6.2 cm LA Volume 65.2 cm??? 18 - 58 / 22 - 52 cm??? LA Volume Index 31.0 cm???/m??? 16 - 28 cm???/m??? M-MODE Aortic Root Diameter MM 2.7 cm LA Systolic Diameter MM 3.8 cm LA Ao Ratio MM 1.4 AV Cusp Separation MM 1.9 cm DOPPLER AV Peak Velocity 123.1 cm/s AV Peak Gradient 6.1 mmHg MV Area PHT 2.8 cm??? Mitral E Point Velocity 75.6 cm/s Mitral A Point Velocity 61.7 cm/s Mitral E to A Ratio 1.2 MV Deceleration Time 271.3 ms TR Peak Velocity 203.4 cm/s TR Peak Gradient 16.5 mmHg Right Ventricular Systolic Press 21.3 mmHg PV Peak Velocity 106.0 cm/s PV Peak Gradient 4.5 mmHg FINDINGS Left Ventricle Left ventricular ejection fraction is estimated at 60-65 %. Mildly increased septal wall thickness. Mildly increased posterior wall thickness. No obvious regional wall motion abnormalities. Normal left ventricular diastolic filling pattern. Left ventricular cavity size normal. Right Ventricle Normal right ventricular size and function. Right ventricular systolic pressure within normal limits. Right Atrium Normal right atrial size. Left Atrium Mildly increased left atrial diameter. Mildly increased left atrial volume. Mildly increased left atrial area. Mitral Valve Structurally normal mitral valve. Trace mitral regurgitation. Aortic Valve Trileaflet aortic valve. No aortic valve stenosis or regurgitation. Tricuspid Valve Structurally normal tricuspid valve. Mild tricuspid regurgitation. Pulmonic Valve Structurally normal pulmonic valve. No pulmonic stenosis. Trace pulmonic regurgitation. Pericardium Normal pericardium. Aorta Normal size aortic root and proximal ascending aorta. CONCLUSIONS LV size and systolic function Normal RV size and systolic function Mild left atrial enlargement Mildly thickened posterior basal pericardial without any effusion Previewed by: Dr. Niko Morocho MD (Electronically Signed) Final Date: 15 March 2024 10:22
--- NOTE | 2024-03-15 10:33 | P.CRDCN ---
History of Present Illness History of present illness: HISTORY OF PRESENT ILLNESS: This is a 53-year-old female with a past medical history significant for hyperlipidemia, GERD, and depression. Patient does not follow with a records administrator. We have been asked to see the patient in consultation for chest pain. Patient examined at the bedside in the emergency room. Patient states she was at [employer] yesterday morning when she began to have pain in the middle of her chest. She states it felt like a pressure type sensation in the upper aspect of her chest. She states that the pain also went into her lower back. She reports feeling nauseated. She states the pain lasted for approximately 30 minutes and then went away on its own. She states the discomfort recurred yesterday evening around 10 PM. She states she was not nauseous at that time. She reports feeling somewhat disoriented. She states she continued to have the pain when sh e came to the emergency room but then the pain went away on its own. The pain is not worse with chest wall palpation. She states the pain is worse when she lays down and is improved when she is sitting up. She is a non-smoker. She denies a family history of CAD. DIAGNOSTICS: - EKG reveals sinus mechanism with no signs of acute ischemia - Chest xray negative for acute process - Laboratory data: WBC 7.5. Hemoglobin 13.7. Platelet count 253. D-dimer 0.25. Sodium 140. Potassium 4.5. BUN 17. Creatinine 0.75. Troponin negative x 3. - Current home cardiac medications include Lipitor 10 mg at night. REVIEW OF SYSTEMS: At the time of my exam: CONSTITUTIONAL: Denies fever or chills. HEENT: Denies blurred vision, vision changes, or eye pain. Denies hemoptysis CARDIOVASCULAR: Denies chest pain. Denies orthopnea. Denies PND. Denies palpitations RESPIRATORY: Denies shortness of breath. GASTROINTESTINAL: Denies abdominal pain. Denies nausea or vomiting. HEMATOLOGIC: Denies bleeding disorders. GENITOURINARY: Denies any blood in urine. SKIN: Denies pruitis. Denies rash. PHYSICAL EXAM: VITAL SIGNS: Reviewed. GENERAL: Well-developed in no acute distress. HEENT: Head is normocephalic. Pupils are equal, round. Sclerae anicteric. Mucous membranes of the mouth are moist. Neck supple. No JVD or thyromegaly LUNGS: Respirations even and unlabored. Lungs essentially clear to auscultation bilaterally. HEART: Regular rate and rhythm. S1 and S2 heard. ABDOMEN: Soft. Nondistended. Nontender. EXTREMITIES: Normal range of motion. No clubbing or cyanosis. Peripheral pulses intact. No lower extremity edema NEUROLOGIC: Awake and alert. Oriented x 3. ASSESSMENT: Chest pain, rule out pericarditis Hyperlipidemia GERD Depression Morbid obesity: BMI 37.2 PLAN: An acute coronary but has been ruled out Obtain 2D echo to assess cardiac structure and function Resume home cardiac medications Repeat EKG Obtain lipid panel and hemoglobin A1c Further recommendations pending patient course Nurse practitioner note has been reviewed by physician. Signing provider agrees with the documented findings, assessment, and plan of care documented by RN BSN as a scribe. Past Medical History Past Medical History: GERD/Reflux Additional Past Medical History / Comment(s): Low iron, anemia History of Any Multi-Drug Resistant Organisms: None Reported Past Surgical History: Bariatric Surgery Past Anesthesia/Blood Transfusion Reactions: No Reported Reaction Past Psychological History: Depression Smoking Status: Never smoker Past Alcohol Use History: Rare Past Drug Use History: None Reported Medications and Allergies Home Medications Medication Instructions Recorded Confirmed Type Citalopram Hydrobromide [CeleXA] 20 mg PO HS 05/14/17 03/15/24 History Omeprazole [PriLOSEC] 20 mg PO HS 05/14/17 03/15/24 History Atorvastatin [Lipitor] 10 mg PO HS 03/15/24 03/15/24 History Loratadine [Claritin] 10 mg PO DAILY 03/15/24 03/15/24 History Allergies Allergy/AdvReac Type Severity Reaction Status Date / Time No Known Allergies Allergy Verified 03/15/24 08:12 Physical Exam Vitals: Vital Signs Temp Pulse Resp BP Pulse Ox 03/15/24 04:00 95 18 119/88 95 03/15/24 03:30 98 F 60 18 100/65 96 03/15/24 02:00 63 18 124/80 95 03/15/24 01:00 62 18 132/78 94 L 03/14/24 23:44 97.7 F 67 18 128/73 97 Intake and Output 03/14/24 03/15/24 03/15/24 22:59 06:59 14:59 Other: Weight 95.254 kg Results 03/14/24 23:48 03/14/24 23:48 Cardiac Enzymes 03/14/24 03/14/24 03/15/24 Range/Units 23:48 23:48 03:26 AST 25 (14-36) U/L Troponin I <0.012 <0.012 (0.000-0.034) ng/mL 03/15/24 Range/Units 06:10 AST (14-36) U/L Troponin I <0.012 (0.000-0.034) ng/mL Coagulation 03/14/24 Range/Units 23:48 PT 10.0 (10.0-12.5) sec APTT 23.9 (22.0-30.0) sec CBC 03/14/24 Range/Units 23:48 WBC 7.5 (3.8-10.6) k/uL RBC 4.77 (3.80-5.40) m/uL Hgb 13.7 (11.4-16.0) gm/dL Hct 41.5 (34.0-46.0) % Plt Count 253 (150-450) k/uL Comprehensive Metabolic Panel 03/14/24 Range/Units 23:48 Sodium 140 (137-145) mmol/L Potassium 4.5 (3.5-5.1) mmol/L Chloride 106 (98-107) mmol/L Carbon Dioxide 30 (22-30) mmol/L BUN 17 (7-17) mg/dL Creatinine 0.75 (0.52-1.04) mg/dL Glucose 110 H (74-99) mg/dL Calcium 9.3 (8.4-10.2) mg/dL AST 25 (14-36) U/L ALT 45 H (4-34) U/L Alkaline Phosphatase 105 (38-126) U/L Total Protein 6.9 (6.3-8.2) g/dL Albumin 4.0 (3.5-5.0) g/dL Current Medications Generic Name Dose Route Start Last Admin Trade Name Freq PRN Reason Stop Dose Admin Heparin Sodium (Porcine) 5,000 unit 03/15/24 08:00 Heparin Sodium,Porcine 5,000 Unit/Ml 1 Ml Vial SQ Q8HR JENSEN Naloxone HCl 0.2 mg 03/15/24 01:44 Naloxone 0.4 Mg/Ml 1 Ml Vial IV Q2M PRN Opioid Reversal Intake and Output 03/14/24 03/15/24 03/15/24 22:59 06:59 14:59 Other: Weight 95.254 kg 03/14/24 23:48 03/14/24 23:48
[2024-03-15 15:11] VITALS: BP 128/74; PULSE 88; TEMP 98
--- NOTE | 2024-03-15 15:58 | P.HPIM ---
History of Present Illness H&P Date: 03/15/24 Chief Complaint: Chest pain This is a pleasant 53-year-old patient, follows with Dr. Bragg. Chronic stable medical conditions include GERD, hyperlipidemia, depression. Yesterday morning patient was in the [place] when she developed pressure also into her back. Lasted for about half an hour. Settled down gradually on its own. Patient was slightly dizzy. May be a bit short of breath. Patient had a similar episode later in the day. Patient has no prior cardiac history. Patient has put on some weight in the last few years. Denies any excessive muscular work. No leg swelling. Review of systems: GEN.: Tired EYES: None HEENT: None NECK: None RESPIRATORY: None CARDIOVASCULAR: As above e GASTROINTESTINAL: None GENITOURINARY: None MUSCULOSKELETAL: None LYMPHATICS: None HEMATOLOGICAL: None PSYCHIATRY: Bit of depression e NEUROLOGICAL: None Social history: Lives with her . Alcohol rarely. No smoking. 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 Physical examination: VITAL SIGNS: 98.4, 62, 16, 103/69, 96% room air GENERAL: BMI 37.2, reclining bed awake comfortable. EYES: Pupils equal. Conjunctiva brittany l. HEENT: External appearance of nose and ears normal, oral cavity grossly normal. NECK: JVD not raised; masses not palpable. HEART: First and second heart sounds are normal; no edema. LUNGS: Respiratory rate normal; clear to auscultation. ABDOMEN: Soft, nontender, liver spleen not palpable, no masses palpable. PSYCH: Alert and oriented x3; mood and affect brittany l. MUSCULOSKELETAL:No Clubbing/cyanosis;muscles-grossly intact NEUROLOGICAL: Cranial nerves grossly intact; no facial asymmetry, power and sensation grossly intact. LYMPHATICS: No lymph nodes palpable in the axilla and neck INVESTIGATIONS, reviewed in the clinical context: March 14, 2024: White count 7.5 hemoglobin 13.7 platelets 253 D-dimer 0.25 potassium 4.5 BUN 17 creatinine 0.75 Troponin I less than 0.012 x 3 EKG tracing personally reviewed by me-normal sinus rhythm. Rate 64 Chest x-ray film personally reviewed by me-unremarkable Assessment plan: -Anterior chest wall pain. Could be musculoskeletal. Serial cardiac exam negative. Telemetry. Cardiology consulted. -Obesity BMI 37.2 Weight loss measures discussed with the patient. Follow-up with PCP. -GERD Prilosec 20 mg nightly -Chronic allergies Claritin -Hyperlipidemia Lipitor 10 mg nightly -Depression not otherwise specified Celexa 20 mg nightly Care was discussed with the patient. 2D echocardiogram has been ordered. Home medications to continue. - Past Medical History Past Medical History: GERD/Reflux Additional Past Medical History / Comment(s): Low iron, anemia History of Any Multi-Drug Resistant Organisms: None Reported Past Surgical History: Bariatric Surgery Past Anesthesia/Blood Transfusion Reactions: No Reported Reaction Past Psychological History: Depression Smoking Status: Never smoker Past Alcohol Use History: Rare Past Drug Use History: None Reported Medications and Allergies Home Medications Medication Instructions Recorded Confirmed Type Citalopram Hydrobromide [CeleXA] 20 mg PO HS 05/14/17 03/15/24 History Omeprazole [PriLOSEC] 20 mg PO HS 05/14/17 03/15/24 History Aspirin 81 mg PO DAILY #30 tab 03/15/24 Rx Atorvastatin [Lipitor] 10 mg PO HS 03/15/24 03/15/24 History Loratadine [Claritin] 10 mg PO DAILY 03/15/24 03/15/24 History Allergies Allergy/AdvReac Type Severity Reaction Status Date / Time No Known Allergies Allergy Verified 03/15/24 08:12 Physical Exam Vitals: Vital Signs Temp Pulse Pulse Resp BP BP Pulse Ox 03/15/24 14:54 98 F 88 16 128/74 97 03/15/24 09:05 98.4 F 62 16 103/69 96 03/15/24 04:00 95 18 119/88 95 03/15/24 03:30 98 F 60 18 100/65 96 03/15/24 02:00 63 18 124/80 95 03/15/24 01:00 62 18 132/78 94 L 03/14/24 23:44 97.7 F 67 18 128/73 97 Intake and Output 03/15/24 03/15/24 03/15/24 06:59 14:59 22:59 Other: # Voids 2 Weight 95.254 kg 95.254 kg Results CBC & Chem 7: 03/14/24 23:48 03/14/24 23:48 Labs: Abnormal Lab Results - Last 24 Hours (Table) 03/14/24 Range/Units 23:48 Glucose 110 H (74-99) mg/dL ALT 45 H (4-34) U/L
[2024-03-15 16:26] LABS: Chol/HDL Ratio 2.64 Ratio; LDL Cholesterol,Calculated 80.3 mg/dL (0.0-131.0); VLDL Calculation 16.64 mg/dL (5.00-40.00)
[2024-03-15] MEDS ORDERED: PANTOPRAZOLE 40 MG TABLET PO SCH (21:00)
[2024-03-15] MEDS ORDERED: CITALOPRAM HYDROBROMIDE 20 MG TAB PO SCH (21:00)
[2024-03-15] MEDS ORDERED: ATORVASTATIN 10 MG TAB PO SCH (21:00)
--- NOTE | 2024-03-16 20:19 | P.DS ---
Providers Date of admission: 03/15/24 01:44 Expected date of discharge: 03/15/24 Attending physician: Nolan Pond Consults: 03/15/24 01:44 Consult Physician Routine Consulting Provider: [facility] Consult Reason/Comments: chest pain Do you want consulting provider notified?: Yes Primary care physician: Gerard [facility] Course: Chief Complaint: Chest pain This is a pleasant 53-year-old patient, follows with Dr. Bragg. Chronic stable medical conditions include GERD, hyperlipidemia, depression. Yesterday morning patient was in [place] when she developed pressure also into her back. Lasted for about half an hour. Settled down gradually on its own. Patient was slightly dizzy. May be a bit short of breath. Patient had a similar episode later in the day. Patient has no prior cardiac history. Patient has put on some weight in the last few years. Denies any excessive muscular work. No leg swelling. 2D echocardiogram came back to be unremarkable. Patient to follow-up with cardiology outpatient. Social history: Lives with her . Alcohol rarely. No smoking. 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 Physical examination: VITAL SIGNS: 98.4, 62, 16, 103/69, 96% room air GENERAL: BMI 37.2, reclining bed awake comfortable. EYES: Pupils equal. Conjunctiva brittany l. HEENT: External appearance of nose and ears normal, oral cavity grossly normal. NECK: JVD not raised; masses not palpable. HEART: First and second heart sounds are normal; no edema. LUNGS: Respiratory rate normal; clear to auscultation. ABDOMEN: Soft, nontender, liver spleen not palpable, no masses palpable. PSYCH: Alert and oriented x3; mood and affect brittany l. MUSCULOSKELETAL:No Clubbing/cyanosis;muscles-grossly intact NEUROLOGICAL: Cranial nerves grossly intact; no facial asymmetry, power and sensation grossly intact. LYMPHATICS: No lymph nodes palpable in the axilla and neck INVESTIGATIONS, reviewed in the clinical context: March 14, 2024: White count 7.5 hemoglobin 13.7 platelets 253 D-dimer 0.25 potassium 4.5 BUN 17 creatinine 0.75 Troponin I less than 0.012 x 3 EKG tracing personally reviewed by me-normal sinus rhythm. Rate 64 Chest x-ray film personally reviewed by me-unremarkable 2D echocardiogram: Preserved LV function Assessment plan: -Anterior chest wall pain. Could be musculoskeletal. Serial cardiac exam negative. Telemetry. By cardiology Dr. Niko Maloney. Follow-up outpatient. 2D echo-normal. -Obesity BMI 37.2 Weight loss measures discussed with the patient. Follow-up with PCP. -GERD Prilosec 20 mg nightly -Chronic allergies Claritin -Hyperlipidemia Lipitor 10 mg nightly -Depression not otherwise specified Celexa 20 mg nightly Disposition: Home - Past Medical History Past Medical History: GERD/Reflux Additional Past Medical History / Comment(s): Low iron, anemia History of Any Multi-Drug Resistant Organisms: None Reported Past Surgical History: Bariatric Surgery Past Anesthesia/Blood Transfusion Reactions: No Reported Reaction Past Psychological History: Depression Smoking Status: Never smoker Past Alcohol Use History: Rare Past Drug Use History: None Reported Plan - Discharge Summary Discharge Rx Participant: Yes New Discharge Prescriptions: New Aspirin 81 mg PO DAILY #30 tab Continue Citalopram Hydrobromide [CeleXA] 20 mg PO HS Omeprazole [PriLOSEC] 20 mg PO HS Atorvastatin [Lipitor] 10 mg PO HS Loratadine [Claritin] 10 mg PO DAILY Discharge Medication List Citalopram Hydrobromide [CeleXA] 20 mg PO HS 05/14/17 [History] Omeprazole [PriLOSEC] 20 mg PO HS 05/14/17 [History] Aspirin 81 mg PO DAILY #30 tab 03/15/24 [Rx] Atorvastatin [Lipitor] 10 mg PO HS 03/15/24 [History] Loratadine [Claritin] 10 mg PO DAILY 03/15/24 [History] Follow up Appointment(s)/Referral(s): cardiology, [Other] - 2 Weeks Gerard Bragg DO [Primary Care Provider] - 1-2 days Patient Instructions/Handouts: Angina (DC) Activity/Diet/Wound Care/Special Instructions: DC if ok with cardiology Discharge Disposition: HOME SELF-CARE
== END 2024-03-15 14:50 | disposition home or self-care (01) ==
LOC: EC 23:42 → 6NMEDSUR 03-15 01:44
PROVIDERS: ADMIT Hospitalist; ATTEND Hospitalist
DX: R07.89 Other chest pain (principal); K21.9 Gastro-esophageal reflux disease without esophagitis; F32.A Depression, unspecified; E78.5 Hyperlipidemia, unspecified; E66.01 Morbid (severe) obesity due to excess calories; Z68.37 Body mass index [BMI] 37.0-37.9, adult; Z79.82 Long term (current) use of aspirin; Z79.899 Other long term (current) drug therapy
CPT/HCPCS: 96372; 96374; 96375; 99285; 36415 ×2; 93005; 93306; 85379; 80061; 80053; 83735; 84484 ×2; 85025; 85610; 85730; 83036; 71046; G0378; J1644; J1885; C9113

== ENCOUNTER 2024-05-03 06:19 | Day surgery (SDC) | payer BC ==
[~2024-05-03 06:19] MED LIST changes: -DEXAMETHASONE SOD PHOSPHATE 10 MG/ML 1 ML VIAL IV ONE; -HYDROmorphone 0.5 MG/0.5 ML SYRINGE IVP PRN; -LACTATED RINGERS 1,000 ML IV SCH; -ONDANSETRON 4 MG/2 ML VIAL IVP ONE; -Pre Op ABX Message 1 EACH MISC MISCELLANE ONE
[2024-05-03 07:00] VITALS: TEMP 97.8
[2024-05-03] MEDS: ACETAMINOPHEN TAB 500 MG TAB PO PRN (07:07)
[2024-05-03] MEDS: ONDANSETRON 4 MG/2 ML VIAL IVP ONE (07:08)
[2024-05-03] MEDS: HEPARIN SODIUM,PORCINE 5,000 UNIT/ML 1 ML VIAL SQ PRN (07:08)
[2024-05-03] MEDS: IV FLUID CONTINUATION 1,000 ML IV ONE ×2 (07:15→09:27)
[2024-05-03] MEDS: DEXAMETHASONE SOD PHOSPHATE 4 MG/ML 1 ML VIAL IVP STA (07:21)
[2024-05-03] MEDS ORDERED: ePHEDrine 50 MG/ML 1 ML VIAL ONE (07:22)
[2024-05-03] MEDS ORDERED: fentaNYL (PF) 50 MCG/ML 2 ML AMP ONE (07:22)
[2024-05-03] MEDS: SCOPOLAMINE 1 MG/72 HR PATCH TRANSDERM STA (07:22)
[2024-05-03] MEDS ORDERED: LIDOCAINE 1% INJ 10MG/ML (20 ML MDV) ONE (07:22)
[2024-05-03] MEDS ORDERED: NEOSTIGMINE 1 MG/ML 10 ML VIAL ONE (07:22)
[2024-05-03] MEDS ORDERED: HYDROmorphone (PF) 1 MG/ML ONE (07:22)
[2024-05-03] MEDS ORDERED: SUCCINYLCHOLINE CHLORIDE 200 MG/10 ML VIAL IV ONE (07:22)
[2024-05-03] MEDS: LACTATED RINGERS 1,000 ML IV SCH (07:22)
[2024-05-03] MEDS ORDERED: GLYCOPYRROLATE 0.2 MG/ML 2 ML VIAL ONE (07:22)
[2024-05-03] MEDS ORDERED: MIDAZOLAM 2 MG/2 ML VIAL ONE (07:22)
[2024-05-03] MEDS: FAMOTIDINE 20 MG/2 ML VIAL IV STA (07:22)
[2024-05-03] MEDS ORDERED: ROCURONIUM 10 MG/ML (5 ML VIAL) IV ONE (07:22)
[2024-05-03] MEDS ORDERED: PROPOFOL 10 MG/ML 20 ML VIAL IV ONE (07:22)
--- NOTE | 2024-05-03 07:43 | P.GSHP ---
History of Present Illness H&P Date: 05/03/24 Chief Complaint: Chronic cholecystitis 53-year-old female here for elective laparoscopic cholecystectomy. Has had intermittent right upper quadrant pains. History of known gallstones. No change in the color of her skin urine or stool. Recent liver enzymes show slightly elevated transaminase. Past Medical History Past Medical History: GERD/Reflux, Hyperlipidemia, Sleep Apnea/CPAP/BIPAP Additional Past Medical History / Comment(s): hx Low iron, anemia- ablation resolved. RUQ pain intermittently. joint pain in fingers. does not wear her CPAP. edema to ankles History of Any Multi-Drug Resistant Organisms: None Reported Past Surgical History: Bariatric Surgery, Uterine Ablation Additional Past Surgical History / Comment(s): EGD, Past Anesthesia/Blood Transfusion Reactions: No Reported Reaction Past Psychological History: Depression Smoking Status: Never smoker Past Alcohol Use History: Rare Past Drug Use History: None Reported - Past Family History Father Family Medical History: Cancer Additional Family Medical History / Comment(s): bladder cancer, arrythmia Mother Family Medical History: Cancer Additional Family Medical History / Comment(s): skin cancer Medications and Allergies Home Medications Medication Instructions Recorded Confirmed Type Citalopram Hydrobromide [CeleXA] 20 mg PO HS 05/14/17 04/28/24 History Omeprazole [PriLOSEC] 20 mg PO HS 05/14/17 04/28/24 History Atorvastatin [Lipitor] 10 mg PO HS 03/15/24 04/28/24 History Loratadine [Claritin] 10 mg PO HS 03/15/24 04/28/24 History Fluticasone Nasal [place] [Flonase 1 spray EA NOSTRIL DAILY 04/28/24 04/28/24 History Nasal [place]cock] Otc Rolaids 1 tab PO DIRECTED PRN 04/28/24 04/28/24 History Allergies Allergy/AdvReac Type Severity Reaction Status Date / Time No Known Allergies Allergy Verified 04/28/24 15:42 Surgical - Exam Vital Signs Temp Pulse Resp BP 97.8 F 70 20 109/69 05/03/24 06:39 05/03/24 06:39 05/03/24 06:39 05/03/24 06:39 Physical exam: General: Well-developed, well-nourished HEENT: Normocephalic, sclerae nonicteric Abdomen: Nontender, nondistended Extremities: No edema Neuro: Alert and oriented Assessment and Plan (1) Chronic cholecystitis Narrative/Plan: 53-year-old female with chronic cholecystitis. Will proceed with laparoscopic cholecystectomy, possible open. Risks of bleeding, infection, bile leak, bile duct injury, retained common bile duct stone, trocar injury, conversion to an open procedure, hernia, anesthesia related complications were reviewed. The patient understands and wishes to proceed. Current Visit: Yes Status: Acute Code(s): K81.1 - CHRONIC CHOLECYSTITIS SNOMED Code(s): 90881559
[2024-05-03] MEDS: BUPIVACAINE (PF) 0.25% 30 ML VIAL SQ ONE (07:56)
--- NOTE | 2024-05-03 09:07 | P.OP ---
Date of Procedure: 05/03/24 Procedure(s) Performed: PREOPERATIVE DIAGNOSIS: Chronic cholecystitis POSTOPERATIVE DIAGNOSIS: Same PROCEDURE: Laparoscopic cholecystectomy SURGEON: Roger EBL: Minimal see anesthesia record ANESTHESIA: Gen. COMPLICATIONS: None OPERATIVE PROCEDURE: The patient was brought and placed on the operating room table in the supine position. The patient was placed under general anesthesia at that time. The abdomen was prepped and draped in the usual sterile fashion. A small vertical infraumbilical incision was made. The fascia was grasped with the Minal forceps. The fascia was retracted anteriorly. The Veress needle was advanced into the peritoneal cavity. The saline drop test was normal. Insufflation took place up to 15 mmHg. A 5 mm optical trocar was advanced and the peritoneal cavity. 2 additional 5 mm trochars were placed in the right upper quadrant under direct visualization. A 12 mm trocar was advanced into the epigastric incision site. The gallbladder was retracted superiorly and laterally. The peritoneum overlying the infundibulum was bluntly dissected. The patient's cystic duct was visualized. The junction between the cystic duct common and hepatic duct was identified. The critical view of safety was achieved after blunt dissection. The cystic duct was then divided after placement of 3 12 mm clips on the patient's side and one on the specimen side. The cystic artery was identified and clipped as well. A small vessel was seen along the gallbladder fossa and clipped as well. The gallbladder was then removed from the liver bed using electrocautery. The gallbladder was then removed from the epigastric trocar site with an Endo Catch bag. The patient had a very large stone within the gallbladder and in order to remove the gallbladder we had to lengthen our epigastric incision site. The gallbladder fossa was irrigated with saline. There was no evidence of any bleeding or biliary drainage seen. The fascia at the 12 millimeter site was closed using a Shelton- Alexx 0 Vicryl stitch. The trochars were then removed. The skin at all 4 sites was closed using a 4-0 Monocryl stitch. Skin glue was utilized on the incision sites. At the end of this procedure the sponge and needle counts were correct. DISPOSITION: Stable to the recovery room
[2024-05-03] MEDS: HYDROmorphone 0.5 MG/0.5 ML SYRINGE IVP PRN (09:24)
[2024-05-03 10:21] VITALS: RESP 18
[2024-05-03 10:42] VITALS: BP 122/82; PULSE 87
[2024-05-03] MEDS ORDERED: IBUPROFEN 600 MG TAB PO SCH (12:15)
[2024-05-03] MEDS ORDERED: ACETAMINOPHEN TAB 325 MG TAB PO SCH (15:15)
== END 2024-05-03 11:32 | disposition home or self-care (01) ==
LOC: OR 06:19
PROVIDERS: ATTEND Surgery
DX: K80.10 Calculus of gallbladder with chronic cholecystitis without obstruction (principal); K21.9 Gastro-esophageal reflux disease without esophagitis; E78.5 Hyperlipidemia, unspecified; G47.33 Obstructive sleep apnea (adult) (pediatric); Z79.899 Other long term (current) drug therapy; Z98.890 Other specified postprocedural states
CPT/HCPCS: 81025; 47562; J2250; J0330; J1644; J1100; J2710; J0690; J2405; J2001; J3010; J3490; J1170 ×2; J2704; J0665; 88304

== ENCOUNTER → 2025-06-15 | Outpatient (CLI) | payer BC | END | disposition home or self-care (01) | LOC: RADMAMWWP 07:02 | PROVIDERS: ATTEND Obstetrics & Gynecology | DX: Z53.9 Procedure and treatment not carried out, unspecified reason (principal) ==